=== PATIENT | female | born 1950 | race Caucasian/White ===

== ENCOUNTER → 2019-09-22 08:02 | Outpatient (CLI) | payer MEDICARE, OTHER, SELFPAY ==
[2019-09-22 08:57] LABS: Hematocrit 40.6 % (36-46); Hemoglobin 13.7 g/dL (12.0-16.0); Mean Corpuscular HGB Conc 33.8 % (30-36); Mean Corpuscular Hemoglobin 32.1 PG (26-34); Mean Corpuscular Volume 95.1 fL (80-100); Platelet Count 260 X10^3/uL (150-400); Red Blood Cell Count 4.27 X10^6/uL (4.0-5.2); Red Cell Distribution Width 12.9 % (11.6-14.8); White Blood Cell Count 5.7 X10^3/uL (4.5-11.0)
[2019-09-22 09:14] LABS: Alanine Aminotransferase 20 IU/L (<35); Albumin 4.3 g/dL (3.5-5.0); Albumin Globulin Ratio 1.7 (1.0-2.8); Alkaline Phosphatase 64 U/L (38-126); Aspartate Aminotransferase 32 IU/L (14-36); BUN Creatinine Ratio 22.5 (6-22); Bilirubin Total 0.6 mg/dL (0.2-1.3); Blood Urea Nitrogen 18 mg/dL (7-17); Calcium 9.5 mg/dL (8.4-10.2); Carbon Dioxide 28 mmol/L (22-32); Chloride 105 mmol/L (98-107); Cholesterol 179 mg/dL (140-199); Estimated Glomerular Filt Rate > 60.0 mL/min (>60); Globulin 2.6 g/dL (1.7-4.1); Glucose 98 mg/dL (80-110); HDL Cholesterol 73 mg/dL (40-60); HEMOLYSIS < 15 (0-50); LDL Cholesterol Calculated 95 mg/dL (<100); Potassium 4.3 mmol/L (3.4-5.1); Sodium 138 mmol/L (137-145); Total Protein 6.9 g/dL (6.3-8.2); Triglycerides 57 mg/dL (35-150)
== END ==
PROVIDERS: PCP Nurse Practitioner Family; Visit Provider Nurse Practitioner Family
DX: Z00.00 Encounter for general adult medical examination without abnormal findings (principal); Z13.6 Encounter for screening for cardiovascular disorders; R53.83 Other fatigue; E78.5 Hyperlipidemia, unspecified
CPT/HCPCS: 36415; 80053; 80061; 85027

== ENCOUNTER → 2020-06-23 14:24 | Outpatient (CLI) | payer MEDICARE, OTHER, SELFPAY ==
--- NOTE | 2020-06-23 14:35 | DI.MG.S_ITS ---
Patient Name: GUERITA DYER date: 1950 Sex: F Attending Physician: Mariela Indications: Date: 06/23/2020 14:28 At the request of: ANH STARR Procedure: MM screening mammo BI BILATERAL DIGITAL SCREENING MAMMOGRAM 3D/2D WITH CAD: 06/23/2020 CLINICAL: Routine screening. Family history of breast cancer. Comparison is made to exams dated: 02/07/2019 mammogram, 11/10/2017 mammogram, and 08/26/2016 mammogram - [facility]. The tissue of both breasts is heterogeneously dense. This may lower the sensitivity of mammography. Current study was also evaluated with a Computer Aided Detection (CAD) system. No significant masses, calcifications, or other findings are seen in either breast. There has been no significant interval change. IMPRESSION: NEGATIVE There is no mammographic evidence of malignancy. A 1 year screening mammogram is recommended. This exam was interpreted at Station ID: [id number]. NOTE: For mammograms, a report in lay terms will be sent to the patient. Approximately 15% of breast malignancies will not be visualized mammographically. In the management of a palpable breast mass, a negative mammogram must not discourage biopsy of a clinically suspicious lesion. Electronically Signed By: Jason abel/carmita:06/26/2020 09:53:33 letter sent: Normal Exam ACR BI-RADS Category 1: Negative 3341F
== END ==
PROVIDERS: PCP Nurse Practitioner Family; Referring Provider Nurse Practitioner Family; Visit Provider Nurse Practitioner Family
DX: Z12.31 Encounter for screening mammogram for malignant neoplasm of breast (principal); Z80.3 Family history of malignant neoplasm of breast
CPT/HCPCS: 77063; 77067

== ENCOUNTER → 2020-06-23 14:47 | Outpatient (CLI) | payer MEDICARE, OTHER, SELFPAY ==
[2020-06-26 15:42] LABS: COVID19 Sendout Not Detected (Not Detect)
== END ==
PROVIDERS: PCP Nurse Practitioner Family; Visit Provider Physician Assistant
DX: Z11.59 Encounter for screening for other viral diseases (principal)
CPT/HCPCS: 87635

== ENCOUNTER 2020-06-26 12:18 | Day surgery (SDC) | payer MEDICARE, OTHER, SELFPAY ==
[2020-06-26] VITALS (7 sets, daily range): BP systolic 99–134; BP diastolic 54–80; PULSE 65–79; RESP 12–18; TEMP 36–36.9; O2SAT 98–100; BMI 24.1
[2020-06-26] MEDS: SODIUM CHLORIDE 0.9% 1,000 ML 200 ML IV (13:01)
[2020-06-26 13:08] LABS: COVID19 -Nasal RAPID Negative (Negative)
--- NOTE | 2020-06-26 13:32 | P.HP_ITS ---
History of Present Illness History of Present Illness Date Patient Seen: 06/26/20 Time Patient Seen: 13:32 Chief complaint: [facility] [place] Narrative: This is a 70-year-old woman with history of colon polyps found on a screening colonoscopy 5 years ago. Since then she has had no new symptoms, no hematochezia, no melena, no unexplained abdominal pain, no unexplained weight loss. Her mother was diagnosed with colon cancer in her 60s. The patient denies any other family history of colon polyps or colon cancers. ROS: Positive for arthritis, gastritis, Thirteen system review is otherwise negative other than as mentioned below and in HPI. PE: GENERAL: Well groomed and cooperative. Appears stated age. Answers questions promptly and appropriately. Vital signs noted. HENT: Normocephalic, atraumatic. Hearing intact. EYES: Conjunctiva pink, sclera white, no periorbital swelling. CARDIOVASCULAR: Regular rate. No pedal edema. RESPIRATORY: Non-tachypneic, breathing comfortably on room air. GASTROINTESTINAL: Abdomen soft and non-distended GENITALURINARY: No flank tenderness. MUSCULOSKELETAL: Equal tone and mass bilaterally. SKIN: Warm, dry, soft, appropriate color for ethnicity. No other lesions, rashes, or wounds. NEURO: Alert and Oriented X 3. No gross sensory deficits, or cognitive issues. PSYCH: Appropriate affect and mood. Patient History Medical History Allergies (Inactive ~1959) Chicken pox (Resolved ~1954) Chronic SI joint pain (Chronic) Eczema (Resolved ~1952) Food allergy (Chronic ~1969) Hearing loss (Chronic ~2009) Measles (Resolved ~1955) Osteoarthritis (Chronic ~2011) Skin lesion (Acute) Stress incontinence (Chronic ~2009) Tinnitus (Inactive ~1989) Surgical History Anesthesia (Resolved) History of ectopic (Resolved ~1978) Status post appendectomy (~1984) Family & Social History Family History Grandfather Heart disease Mother Heart disease High cholesterol Cancer History of gastrointestinal disease Grandfather Cancer Grandmother Heart disease Sister Age: 72 Heart disease Osteoporosis PAD (peripheral artery disease) Fibromyalgia Hyperlipidemia Father Cancer Hypertension Hyperlipidemia TIA (transient ischemic attack) Grandmother Heart disease Daughter Crohn's disease in remission Social History: household members spouse Tobacco & Substance use: Smoking Status Never smoker alcohol intake current alcohol intake frequency 0-2 drinks per day Substance Use Type does not use Meds Home Medications and Allergies Home Medications Medication Instructions Recorded Confirmed Type aspirin 81 mg tablet,delayed 81 mg PO DAILY 07/05/19 06/26/20 History release Vitamin B12 200 mcg PO BEDTIME 09/12/19 06/26/20 History cholecalciferol (vitamin D3) 50 2,000 unit PO 3XW tab 09/12/19 06/26/20 History mcg (2,000 unit) tablet meloxicam 15 mg tablet 7.5 mg PO DAILY PRN mg 09/12/19 06/26/20 History s-adenosylmethionine 400 mg tablet 400 mg PO DAILY 09/12/19 06/26/20 History diclofenac sodium 1 % topical gel 2 gram TOP BEDTIME PRN #100 gram 03/02/20 06/26/20 Rx zolpidem 10 mg tablet 5 mg PO BEDTIME #30 tab 03/02/20 06/26/20 Rx atorvastatin 10 mg tablet 10 mg PO HS #90 tab 06/08/20 06/26/20 Rx Allergies Allergy/AdvReac Type Severity Reaction Status Date / Time ankush Allergy Severe Facial Verified 04/10/20 10:10 swelling onion AdvReac Intermediate upset Verified 04/10/20 10:10 stomach Exam Vital Signs (past 8 hours): - 06/26/20 12:42 Temperature 98.5 F Pulse Rate 79 Respiratory Rate 14 Blood Pressure 134/80 Pulse Oximetry 100 Oxygen Delivery Method Room Air Objective Labs Labs: Laboratory Results - last 24 hr 06/26/20 12:37 COVID-19 PCR Negative Assessment & Plan Assessment and plan (1) Personal history of colonic polyps: Status: Acute Assessment & Plan narrative: Risks and benefits of screening colonoscopy and possible polypectomy were discussed with the patient including risk of bleeding, perforation, need for additional procedures, risks of anesthesia. The patient desires to proceed with the colonoscopy procedure. COVID-19 COVID-19 status: Negative Result date/Date tested (Pos, Neg/Pending): 06/26/20 Time Spent With Patient Time with patient: 15-24 minutes Quality VTE Deep Vein Thrombosis/Pulmonary Embolism Present on Admission: No
--- NOTE | 2020-06-26 13:35 | PM.OP.ENDO ---
Operative Date/Time/Diagnoses Date of procedure: 06/26/20 Time of procedure: 13:35 Pre-op diagnosis: Personal history of colon polyps Post-op diagnosis: other (Poor prep. No polyps seen) Procedure & Clinicians Study performed: Colonoscopy Procedure sedation performed by the endoscopist Indications: Personal history of colon polyps Surgeon: Evelyne Valdez Procedure Notes SCOAP/Timeout: Performed Procedure in detail: The patient was brought to the room and placed in left lateral decubitus position with all bony prominences padded. A time-out was performed and then the patient was given procedural sedation starting with 2 mg of Versed and 100 mcg of fentanyl. A total of 6 mg of Versed and 200 micro g of fentanyl were given for the entire procedure. Vitals were monitored throughout the procedure and remained stable. Once adequately sedated, the procedure was begun. A rectal exam was performed revealing no abnormalities. The colonoscope was then introduced to the rectum and advanced to the cecum in the usual fashion. The colon was very tortuous, and the patient did not tolerate the procedure very well. We continue to give her additional doses of Versed and fentanyl, but we are limited by her low blood pressure which dropped each time we gave her medication. The cecum was identified by the appendiceal orifice, the mucosal tri-fold, and the ileocecal valve. The scope was then retracted while rotating side to side and examining each mucosal fold. The view was limited by poor prep, with stool and vegetable matter in the cecum, transverse, descending colon, and rectum. Any polyps smaller than 5 mm would have been missed on this procedure due to poor visibility owing to inadequate prep. At the conclusion of the procedure retroflexion was performed and small grade 1-2 internal hemorrhoids without stigmata of bleeding were seen. The scope was then withdrawn from the rectum the procedure was concluded. The patient tolerated the procedure well and was transferred to the PACU in stable condition. Scope withdrawal time: 8 Sedation minutes: 27 Findings: other findings (Inadequate prep) Specimen(s): none sent Complications: none Impression: No polyps seen with the limitation that polyps under 5 mm were likely missed given that there was adherent stool and vegetable matter in the colon Post-procedure Recommendations: Colonscopy in 5 years Follow up: as needed Disposition: PACU
[2020-06-26] MEDS: MIDAZOLAM 5 MG/5 ML VIAL IV (13:39)
[2020-06-26] MEDS: fentaNYL 250 MCG/5 ML INJ IV (13:39)
--- NOTE | 2020-06-26 14:42 | SUR.PHASEI ---
1430 late entry Pt very drowsy, arouses easily to voice. Dr. Valdez spoke with her about her procedure and then recommendations for the next one. VSS. Mostly slept until transferred to [facility].
--- NOTE | 2020-06-26 14:45 | SUR.PHASEII ---
Pt wanting to rest for a bit. Resting comfortably with no c/o.
--- NOTE | 2020-06-26 15:08 | SUR.PHASEII ---
Pt dcd via wc in stable condition with no c/o. All dc instructions givven and pt verbalizes understanding. Pt ambulating well, gait steady.
== END 2020-06-26 15:15 | disposition home or self-care (01) ==
PROVIDERS: PCP Nurse Practitioner Family; Referring Provider Nurse Practitioner Family; Visit Provider Surgery
PROC: 0DJD8ZZ Inspection of Lower Intestinal Tract, Via Natural or Artificial Opening Endoscopic (ICD-10-PCS; CPT 45378; principal; 2020-06-26 13:45)
DX: Z12.11 Encounter for screening for malignant neoplasm of colon (principal); Z86.010 Personal history of colon polyps; Z80.0 Family history of malignant neoplasm of digestive organs; Z11.59 Encounter for screening for other viral diseases; K64.0 First degree hemorrhoids
CPT/HCPCS: G0105; 87635; 99152; 99153; J2250; J3010

== ENCOUNTER → 2020-12-13 07:06 | Outpatient (CLI) | payer MEDICARE, OTHER, SELFPAY ==
[2020-12-13 08:32] LABS: BUN Creatinine Ratio 17.3 (6-22); Blood Urea Nitrogen 13 mg/dL (7-17); Calcium 9.4 mg/dL (8.4-10.2); Carbon Dioxide 32 mmol/L (22-32); Chloride 103 mmol/L (98-107); Cholesterol 184 mg/dL (140-199); Estimated Glomerular Filt Rate > 60.0 mL/min (>60); Glucose 98 mg/dL (80-110); HDL Cholesterol 76 mg/dL (40-60); HEMOLYSIS < 15 (0-50); LDL Cholesterol Calculated 97 mg/dL (<100); Potassium 4.1 mmol/L (3.4-5.1); Sodium 137 mmol/L (137-145); Triglycerides 55 mg/dL (35-150)
[2020-12-13 08:39] LABS: Hematocrit 39.2 % (36-46); Hemoglobin 12.7 g/dL (12.0-16.0); Mean Corpuscular HGB Conc 32.3 % (30-36); Mean Corpuscular Hemoglobin 28.1 PG (26-34); Platelet Count 267 X10^3/uL (150-400); Red Blood Cell Count 4.51 X10^6/uL (4.0-5.2); Red Cell Distribution Width 19.8 % (11.6-14.8); White Blood Cell Count 6.4 X10^3/uL (4.5-11.0)
[2020-12-13 08:48] LABS: HEMOLYSIS < 15 (0-50); Iron 101 ug/dL (37-170)
[2020-12-13 08:59] LABS: Ferritin 13 ng/mL (11-264)
[2020-12-13 09:00] LABS: Percent Iron Saturation 28 % (15-50); Total Iron Binding Capacity 366 ug/dL (265-497); Transferrin 292 mg/dL (206-381)
== END ==
PROVIDERS: PCP Nurse Practitioner Family; Referring Provider Nurse Practitioner Family; Visit Provider Nurse Practitioner Family
DX: E61.1 Iron deficiency (principal); R79.9 Abnormal finding of blood chemistry, unspecified; E78.5 Hyperlipidemia, unspecified
CPT/HCPCS: 36415; 80048; 80061; 82728; 83540; 83550; 85027

== ENCOUNTER → 2021-08-27 15:38 | Outpatient (CLI) | payer MEDICARE, OTHER, SELFPAY ==
--- NOTE | 2021-08-27 15:39 | DI.MG.S_ITS ---
BILATERAL DIGITAL SCREENING MAMMOGRAM 3D/2D WITH CAD: 08/27/2021 CLINICAL: Routine screening. Family history of breast cancer. Comparison is made to exams dated: 06/23/2020 mammogram - [facility], 02/07/2019 mammogram, and 11/10/2017 mammogram - [facility]. The tissue of both breasts is heterogeneously dense. This may lower the sensitivity of mammography. Current study was also evaluated with a Computer Aided Detection (CAD) system. There are benign vascular calcifications in both breasts. No significant masses, calcifications, or other findings are seen in either breast. There has been no significant interval change. IMPRESSION: BENIGN There is no mammographic evidence of malignancy. A 1 year screening mammogram is recommended. This exam was interpreted at Station ID: [id number]. NOTE: For mammograms, a report in lay terms will be sent to the patient. Approximately 15% of breast malignancies will not be visualized mammographically. In the management of a palpable breast mass, a negative mammogram must not discourage biopsy of a clinically suspicious lesion. Electronically Signed By: Bharat faulkner/carmita:08/27/2021 16:00:36 letter sent: Normal Exam ACR BI-RADS Category 2: Benign Finding(s) 3342F
== END ==
PROVIDERS: PCP Nurse Practitioner Family; Referring Provider Nurse Practitioner Family; Visit Provider Nurse Practitioner Family
DX: Z12.31 Encounter for screening mammogram for malignant neoplasm of breast (principal); Z80.3 Family history of malignant neoplasm of breast
CPT/HCPCS: 77063; 77067

== ENCOUNTER → 2021-12-13 07:05 | Outpatient (CLI) | payer MEDICARE, OTHER, SELFPAY ==
[2021-12-13 09:05] LABS: Hematocrit 40.6 % (36-46); Hemoglobin 13.3 g/dL (12.0-16.0); Mean Corpuscular HGB Conc 32.7 % (30-36); Mean Corpuscular Hemoglobin 30.7 PG (26-34); Platelet Count 268 X10^3/uL (150-400); Red Blood Cell Count 4.32 X10^6/uL (4.0-5.2); Red Cell Distribution Width 13.9 % (11.6-14.8); White Blood Cell Count 8.4 X10^3/uL (4.5-11.0)
[2021-12-13 09:36] LABS: HEMOLYSIS < 15 (0-50); Iron 117 ug/dL (37-170)
[2021-12-13 09:50] LABS: Percent Iron Saturation 35 % (15-50); Total Iron Binding Capacity 335 ug/dL (265-497); Transferrin 274 mg/dL (206-381)
[2021-12-13 10:24] LABS: Vitamin D 25 Hydroxy (D3) 33.6 ng/mL (30.0-100.0)
[2021-12-13 11:06] LABS: Alanine Aminotransferase 25 IU/L (<35); Albumin 4.4 g/dL (3.5-5.0); Albumin Globulin Ratio 1.5 (1.0-2.8); Alkaline Phosphatase 59 U/L (38-126); Aspartate Aminotransferase 43 IU/L (14-36); BUN Creatinine Ratio 23.5 (6-22); Bilirubin Total 0.5 mg/dL (0.2-1.3); Blood Urea Nitrogen 19 mg/dL (7-17); Calcium 9.1 mg/dL (8.4-10.2); Carbon Dioxide 29 mmol/L (22-32); Chloride 100 mmol/L (98-107); Cholesterol 178 mg/dL (140-199); Estimated Glomerular Filt Rate > 60.0 mL/min (>60); Globulin 2.9 g/dL (1.7-4.1); Glucose 89 mg/dL (80-110); HDL Cholesterol 77 mg/dL (40-60); HEMOLYSIS < 15 (0-50); LDL Cholesterol Calculated 87 mg/dL (<100); Potassium 4.1 mmol/L (3.4-5.1); Sodium 134 mmol/L (137-145); Total Protein 7.3 g/dL (6.3-8.2); Triglycerides 68 mg/dL (35-150)
[2021-12-13 11:38] LABS: Ferritin 18 ng/mL (11-264)
== END ==
PROVIDERS: PCP Nurse Practitioner Family; Referring Provider Nurse Practitioner Family; Visit Provider Nurse Practitioner Family
DX: E61.1 Iron deficiency (principal); E78.5 Hyperlipidemia, unspecified; E55.9 Vitamin D deficiency, unspecified; F41.9 Anxiety disorder, unspecified
CPT/HCPCS: 36415; 80053; 80061; 82306; 82728; 83540; 83550; 85027

== ENCOUNTER → 2022-09-04 08:07 | Outpatient (CLI) | payer MEDICARE, OTHER, SELFPAY ==
--- NOTE | 2022-09-04 | DI.MG.S_ITS ---
BILATERAL DIGITAL SCREENING MAMMOGRAM 3D/2D WITH CAD: 09/04/2022 CLINICAL: Routine screening. Family history of breast cancer. Comparison is made to exams dated: 08/27/2021 mammogram, 06/23/2020 mammogram - , and 02/07/2019 mammogram - [facility]. Both breasts are heterogeneously dense, which may obscure small masses (category c / 51-75% glandular tissue). Current study was also evaluated with a Computer Aided Detection (CAD) system. There are benign vascular calcifications in both breasts. No significant masses, calcifications, or other findings are seen in either breast. There has been no significant interval change. IMPRESSION: BENIGN There is no mammographic evidence of malignancy. A 1 year screening mammogram is recommended. Based on the Tyrer Cuzick model (a risk assessment model) the patient's lifetime risk is 14.7% and her 10 year risk is 10.2%. According to the ACR, ACS, and NCCN guidelines, an annual breast MRI exam along with mammogram is recommended if the patient's lifetime risk is 20% or greater. This exam was interpreted at Station ID: [id number]. NOTE: For mammograms, a report in lay terms will be sent to the patient. Approximately 15% of breast malignancies will not be visualized mammographically. In the management of a palpable breast mass, a negative mammogram must not discourage biopsy of a clinically suspicious lesion. Electronically Signed By: Norman herrera/carmita:09/04/2022 09:23:17 letter sent: Normal Exam ACR BI-RADS Category 2: Benign Finding(s) 3342F
== END ==
PROVIDERS: PCP Nurse Practitioner; Referring Provider Nurse Practitioner; Visit Provider Nurse Practitioner
DX: Z12.31 Encounter for screening mammogram for malignant neoplasm of breast (principal); Z80.3 Family history of malignant neoplasm of breast
CPT/HCPCS: 77063; 77067

== ENCOUNTER → 2022-09-30 10:44 | Outpatient (CLI) | payer MEDICARE, OTHER, SELFPAY ==
[2022-09-30 11:02] LABS: Appearance Urine UA CLEAR; Bilirubin Urine UA NEGATIVE (NEGATIVE); Color Urine UA YELLOW; Glucose Urine UA NEGATIVE (Negative); Ketones Urine UA NEGATIVE (NEGATIVE); Leukocyte Esterase Urine UA TRACE (NEGATIVE); Nitrite Urine UA NEGATIVE (Negative); Occult Blood Urine UA NEGATIVE (Negative); Protein Urine UA NEGATIVE (Negative); Specific Gravity Urine UA <=1.005 (1.000-1.035); Urobilinogen Urine UA 0.2 E.U./dL (0.2)
[2022-09-30 11:03] LABS: pH Urine UA 6.5 (4.5-8.0)
[2022-09-30 11:08] LABS: Bacteria Urine None Seen; Culture Indicated Urine Specimen Cultured; RBC Urine None Seen (0-5/HPF); WBC Urine None Seen (0-5/HPF)
== END ==
PROVIDERS: PCP Nurse Practitioner; Referring Provider Nurse Practitioner; Visit Provider Nurse Practitioner
DX: R32 Unspecified urinary incontinence (principal)
CPT/HCPCS: 81001; 87086

== ENCOUNTER → 2022-11-26 11:35 | Outpatient (CLI) | payer MEDICARE, OTHER, SELFPAY | PROVIDERS: Family Provider Nurse Practitioner; PCP Nurse Practitioner; Referring Provider Nurse Practitioner; Visit Provider Nurse Practitioner | DX: M85.851 Other specified disorders of bone density and structure, right thigh (principal); Z13.820 Encounter for screening for osteoporosis; Z78.0 Asymptomatic menopausal state | CPT/HCPCS: 77080 ==

== ENCOUNTER 2022-12-15 09:45 | Outpatient (RCR) | payer MEDICARE, OTHER, SELFPAY ==
--- NOTE | 2022-12-01 14:15 | PT.OIE ---
Current Diagnoses Other chronic pain (12/01/22) Pain in right knee (12/01/22) Past Medical History (Last Updated 09/30/22 @ 09:54 by ARNAUD Mena) Allergies (~1959) Chicken pox (~1954) Chronic SI joint pain Eczema (~1952) Food allergy (~1969) Hearing loss (~2009) Iron deficiency Measles (~1955) Medicare annual wellness visit, subsequent (12/10/21) Osteoarthritis (~2011) Skin lesion Stress incontinence (~2009) Tinnitus (~1989) Vitamin D deficiency Past Surgical History (Last Reviewed 09/30/22 @ 09:52 by ARNAUD Mena) Anesthesia History of ectopic (~1978) Status post appendectomy (~1984) Visit Care Team Role Provider Type ARNAUD Mena Attending Provider Advanced Sanitation Officer Family Provider Primary Care Provider Referring Provider Specialty: Family Practice Address: [address] [place] [address] Email: [email or web address] Physical Therapy Initial Evaluation PT-OP-A Visit Information Start: 11/25/22 10:11 Freq: Status: Active Protocol: Document 12/01/22 13:01 AMB (Rec: 12/01/22 13:13 AMB [id number]) Out-Patient Physical Therapy Visit Information Visit Information Visit Type Initial Evaluation Visit Start Time 13:00 Visit Stop Time 13:45 Total Visit Minutes 45 Visit Number 1 PT-OP-B Current Condition Start: 11/25/22 10:11 Freq: Status: Active Protocol: Document 12/01/22 13:01 AMB (Rec: 12/01/22 13:13 AMB [id number]) Current Condition History of Current Condition Onset Date Summer 2020 Current Complaints R knee History of Current Condition Over stretched summer and hurt medial knee. Twisting the knee continues to be problematic. Walks with the dog at least 1.5 miles [place] walking [place] seems to be [place]. Does feel that part of the knee 1- 2x/day. 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 He is still mobile, she doesn' t have to physically transfer him. Treatment Goals Patient/Caregiver Goals Strengthen knee to prevent further worsening of sx. Personal Factors Other Personal Factors That May Effect Hx SI pain Therapy/Recovery PT-OP-C Subjective Start: 11/25/22 10:11 Freq: Status: Active Protocol: Document 12/01/22 13:00 AMB (Rec: 12/04/22 13:59 AMB [id number]) Patient Questionnaires Lower Extremity Functional Scale LEFS Score 69 PT-OP-F Manual Assessment Start: 11/25/22 10:11 Freq: Status: Active Protocol: Document 12/01/22 13:00 AMB (Rec: 12/04/22 13:59 AMB [id number]) Manual Assessments Other Manual Assessments Other Manual Assessments ROM WNL. mild swelling at popliteal fossa PT-OP-L Special Tests Start: 11/25/22 10:11 Freq: Status: Active Protocol: Document 12/01/22 13:00 AMB (Rec: 12/04/22 13:59 AMB [id number]) Special Tests Knee Special Tests Varus- 25 Degrees Test Results - Valgus- 25 Degrees Test Results - Glo Test Test Results - PT-OP-M Strength Start: 11/25/22 10:11 Freq: Status: Active Protocol: Document 12/01/22 13:00 AMB (Rec: 12/04/22 13:59 AMB [id number]) Hip Strength Hip Manual Muscle Testing Right Flexion (L2) 4 Good Extension (S1) 4 Good Abduction 4 Good Left Flexion (L2) 4+ Good+ Extension (S1) 4+ Good+ Abduction 4+ Good+ Knee Strength Knee Manual Muscle Testing Right Flexion (S2) 4+ Good+ Extension (L3) 4+ Good+ Left Flexion (S2) 4+ Good+ Extension (L3) 4+ Good+ PT-OP-Q Treatments Start: 11/25/22 10:11 Freq: Status: Active Protocol: Document 12/01/22 13:00 AMB (Rec: 12/04/22 13:59 AMB [id number]) Therapeutic Exercises Standing Exercises monster walk Reps/Minutes 10 Comments #2 t band squat Reps/Minutes 10 lunge Reps/Minutes 10 PT-OP-T Assessment and Plan Start: 11/25/22 10:11 Freq: Status: Active Protocol: Document 12/01/22 13:59 AMB (Rec: 12/04/22 14:15 AMB [id number]) Physical Therapy Assessment Rehab Potential Rehabilitation Potential Good Evaluation Complexity Number of Personal Factors/Comorbidities 1-2 Number of Body Systems Impaired 3 Clinical Presentation at Evaluation Stable Impairments Impairments Pain,ROM,Strength Goals Two Impairment Gait Short Term Goal (STG) Pt will be able to make sharp turns while walking without an increase in knee pain. STG Duration 6 weeks One Impairment HEP Short Term Goal (STG) Pt will be independent and consistent with a HEP to strengthen her knee/hip complex. STG Duration 6 weeks Assessment Summary Assessment Esha attends physical therapy secondary to medial knee pain that started while stretching her knee. The pain has subsided a good amount, but it still feels a little unstable especially with quick changes in direction. Pt did have mild weakness in her right hip and mild swelling and tenderness at distal attachment of MCL. She will benefit from a skilled therapy progression of strengthening her knee and hip. Physical Therapy Plan Frequency and Duration Frequency of Treatment 2x/Week Duration of treatment (weeks) 6 Plan of Care Start Date 12/01/22 Plan of Care End Date 01/12/23 Therapeutic Interventions Therapeutic Interventions Balance Training,Gait Training ,Home Exercise Program,Manual Therapy,Neuromuscular Re- education,Self-Care/Home Management,Therapeutic Activities,Therapeutic Exercises Modalities Cold Pack/Ice Massage,Electric Stimulation,Hot Packs Next Visit Focus/Plan Next Note Type Treatment Note Next Visit Plan Reassess fwd lunge, squat, and monster walk.
--- NOTE | 2022-12-01 14:16 | PT.OPPOC ---
Physical, Occupational & Speech Therapy At [facility] Current Diagnoses Other chronic pain (12/01/22) Pain in right knee (12/01/22) Visit Care Team Role Provider Type ARNAUD Mena Attending Provider Advanced Scrap Yard Worker Family Provider Primary Care Provider Referring Provider Specialty: Family Practice Address: [address] [place] [address], [facility] Email: [email or web address] Plan Of Care PT-OP-T Assessment and Plan Start: 11/25/22 10:11 Freq: Status: Active Protocol: Document 12/01/22 13:59 AMB (Rec: 12/04/22 14:15 AMB [id number]) Physical Therapy Assessment Rehab Potential Rehabilitation Potential Good Evaluation Complexity Number of Personal Factors/Comorbidities 1-2 Number of Body Systems Impaired 3 Clinical Presentation at Evaluation Stable Impairments Impairments Pain,ROM,Strength Goals Two Impairment Gait Short Term Goal (STG) Pt will be able to make sharp turns while walking without an increase in knee pain. STG Duration 6 weeks One Impairment HEP Short Term Goal (STG) Pt will be independent and consistent with a HEP to strengthen her knee/hip complex. STG Duration 6 weeks Assessment Summary Assessment Esha attends physical therapy secondary to medial knee pain that started while stretching her knee. The pain has subsided a good amount, but it still feels a little unstable especially with quick changes in direction. Pt did have mild weakness in her right hip and mild swelling and tenderness at distal attachment of MCL. She will benefit from a skilled therapy progression of strengthening her knee and hip. Physical Therapy Plan Frequency and Duration Frequency of Treatment 2x/Week Duration of treatment (weeks) 6 Plan of Care Start Date 12/01/22 Plan of Care End Date 01/12/23 Therapeutic Interventions Therapeutic Interventions Balance Training,Gait Training ,Home Exercise Program,Manual Therapy,Neuromuscular Re- education,Self-Care/Home Management,Therapeutic Activities,Therapeutic Exercises Modalities Cold Pack/Ice Massage,Electric Stimulation,Hot Packs Next Visit Focus/Plan Next Note Type Treatment Note Next Visit Plan Reassess fwd lunge, squat, and monster walk. Plan of Care Dates Plan of Care Start Date 12/01/22 Plan of Care End Date 01/12/23 Electronically Signed by: Josey Serrano, PT 12/04/22 1416 If you are in agreement with this Plan of Care, please return a signed and dated copy. I have reviewed this Plan of Care and certify that the skilled therapy services above are required to meet the patient?s needs. Physician Signature Date Printed Name and Credentials Clinical Instructor Signature Printed Name and Credentials
--- NOTE | 2022-12-09 11:16 | PT.OTN ---
Current Diagnoses Other chronic pain (12/09/22) Pain in right knee (12/09/22) Physical Therapy Treatment Note PT-OP-A Visit Information Start: 11/25/22 10:11 Freq: Status: Active Protocol: Document 12/09/22 09:48 AMB (Rec: 12/09/22 10:25 AMB [id number]) Out-Patient Physical Therapy Visit Information Visit Information Visit Type Treatment Note Visit Start Time 09:45 Visit Stop Time 10:30 Total Visit Minutes 45 Visit Number 2 PT-OP-B Current Condition Start: 11/25/22 10:11 Freq: Status: Active Protocol: Document 12/01/22 13:01 AMB (Rec: 12/01/22 13:13 AMB [id number]) Current Condition History of Current Condition Onset Date Summer 2020 Current Complaints R knee History of Current Condition Over stretched summer and hurt medial knee. Twisting the knee continues to be problematic. Walks with the dog at least 1.5 miles when walking [place] the [place] seems to be ok. Does feel that part of the knee 1- 2x/day. 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 He is still mobile, she doesn' t have to physically transfer him. Treatment Goals Patient/Caregiver Goals Strengthen knee to prevent further worsening of sx. Personal Factors Other Personal Factors That May Effect Hx SI pain Therapy/Recovery PT-OP-C Subjective Start: 11/25/22 10:11 Freq: Status: Active Protocol: Document 12/09/22 09:48 AMB (Rec: 12/09/22 10:25 AMB [id number]) OP-PT Subjective Patient Comments Patient Comments Pt reports she is doing ok, has had a difficult time to find time doing her exercises. PT-OP-F Manual Assessment Start: 11/25/22 10:11 Freq: Status: Active Protocol: Document 12/01/22 13:00 AMB (Rec: 12/04/22 13:59 AMB [id number]) Manual Assessments Other Manual Assessments Other Manual Assessments ROM WNL. mild swelling at popliteal fossa PT-OP-L Special Tests Start: 11/25/22 10:11 Freq: Status: Active Protocol: Document 12/01/22 13:00 AMB (Rec: 12/04/22 13:59 AMB [id number]) Special Tests Knee Special Tests Varus- 25 Degrees Test Results - Valgus- 25 Degrees Test Results - Glo Test Test Results - PT-OP-M Strength Start: 11/25/22 10:11 Freq: Status: Active Protocol: Document 12/01/22 13:00 AMB (Rec: 12/04/22 13:59 AMB [id number]) Hip Strength Hip Manual Muscle Testing Right Flexion (L2) 4 Good Extension (S1) 4 Good Abduction 4 Good Left Flexion (L2) 4+ Good+ Extension (S1) 4+ Good+ Abduction 4+ Good+ Knee Strength Knee Manual Muscle Testing Right Flexion (S2) 4+ Good+ Extension (L3) 4+ Good+ Left Flexion (S2) 4+ Good+ Extension (L3) 4+ Good+ PT-OP-Q Treatments Start: 11/25/22 10:11 Freq: Status: Active Protocol: Document 12/09/22 10:40 AMB (Rec: 12/09/22 11:07 AMB [id number]) Therapeutic Exercises Standing Exercises stair step ups Standing Exercise Name fwd and lateral Reps/Minutes 2x10 ea Comments light UE support on railing single leg squat drive Resistance #4 t band Reps/Minutes 2x10 single leg mini squat Reps/Minutes 10 Comments cued glutes, knee alignment monster walk Reps/Minutes 10 Comments #2 t band squat Reps/Minutes 10 lunge Standing Exercise Name forward Reps/Minutes 10 Comments cues for glut activation, knee /hip/foot alignment PT-OP-T Assessment and Plan Start: 11/25/22 10:11 Freq: Status: Active Protocol: Document 12/09/22 09:48 AMB (Rec: 12/09/22 10:25 AMB [id number]) Physical Therapy Assessment Goals Two Impairment Gait Short Term Goal (STG) Pt will be able to make sharp turns while walking without an increase in knee pain. STG Duration 6 weeks One Impairment HEP Short Term Goal (STG) Pt will be independent and consistent with a HEP to strengthen her knee/hip complex. STG Duration 6 weeks Assessment Summary Assessment Esha has been doing her lunges but, now is more mindful of her form. Good gluteal activation during standing exercises. Overall doing well as long as she is mindful to avoid twisting movements. Physical Therapy Plan Frequency and Duration Frequency of Treatment 2x/Week Duration of treatment (weeks) 6 Plan of Care Start Date 12/01/22 Plan of Care End Date 01/12/23 Therapeutic Interventions Therapeutic Interventions Balance Training,Gait Training ,Home Exercise Program,Manual Therapy,Neuromuscular Re- education,Self-Care/Home Management,Therapeutic Activities,Therapeutic Exercises Modalities Cold Pack/Ice Massage,Electric Stimulation,Hot Packs Next Visit Focus/Plan Next Note Type Treatment Note Next Visit Plan Reassess fwd lunge, squat, progress gluteal strengthening with mindfulness of avoiding knee valgus and knee over toe positioning
--- NOTE | 2022-12-15 10:30 | PT.OTN ---
Current Diagnoses Other chronic pain (12/15/22) Pain in right knee (12/15/22) Physical Therapy Treatment Note PT-OP-A Visit Information Start: 11/25/22 10:11 Freq: Status: Active Protocol: Document 12/15/22 09:51 NBM (Rec: 12/15/22 10:35 NBM [id number]) Out-Patient Physical Therapy Visit Information Visit Information Visit Type Treatment Note Visit Start Time 09:50 Visit Stop Time 10:28 Total Visit Minutes 38 Visit Number 3 Number of INSTRUMENT TECHNICIAN Visits 1 PT-OP-B Current Condition Start: 11/25/22 10:11 Freq: Status: Active Protocol: Document 12/01/22 13:01 AMB (Rec: 12/01/22 13:13 AMB [id number]) Current Condition History of Current Condition Onset Date Summer 2020 Current Complaints R knee History of Current Condition Over stretched summer and hurt medial knee. Twisting the knee continues to be problematic. Walks with the dog at least 1.5 miles [place]. Does feel that part of the knee 1- 2x/day. 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 He is still mobile, she doesn' t have to physically transfer him. Treatment Goals Patient/Caregiver Goals Strengthen knee to prevent further worsening of sx. Personal Factors Other Personal Factors That May Effect Hx SI pain Therapy/Recovery PT-OP-C Subjective Start: 11/25/22 10:11 Freq: Status: Active Protocol: Document 12/15/22 09:51 NBM (Rec: 12/15/22 10:35 NBM [id number]) OP-PT Subjective Patient Comments Patient Comments Pt reports she does not have much time for HEP because her spouse started chemo last week . PT-OP-F Manual Assessment Start: 11/25/22 10:11 Freq: Status: Active Protocol: Document 12/01/22 13:00 AMB (Rec: 12/04/22 13:59 AMB [id number]) Manual Assessments Other Manual Assessments Other Manual Assessments ROM WNL. mild swelling at popliteal fossa PT-OP-L Special Tests Start: 11/25/22 10:11 Freq: Status: Active Protocol: Document 12/01/22 13:00 AMB (Rec: 12/04/22 13:59 AMB [id number]) Special Tests Knee Special Tests Varus- 25 Degrees Test Results - Valgus- 25 Degrees Test Results - Glo Test Test Results - PT-OP-M Strength Start: 11/25/22 10:11 Freq: Status: Active Protocol: Document 12/01/22 13:00 AMB (Rec: 12/04/22 13:59 AMB [id number]) Hip Strength Hip Manual Muscle Testing Right Flexion (L2) 4 Good Extension (S1) 4 Good Abduction 4 Good Left Flexion (L2) 4+ Good+ Extension (S1) 4+ Good+ Abduction 4+ Good+ Knee Strength Knee Manual Muscle Testing Right Flexion (S2) 4+ Good+ Extension (L3) 4+ Good+ Left Flexion (S2) 4+ Good+ Extension (L3) 4+ Good+ PT-OP-Q Treatments Start: 11/25/22 10:11 Freq: Status: Active Protocol: Document 12/15/22 09:51 NBM (Rec: 12/15/22 10:35 [facility] [id number]) Therapeutic Exercises Standing Exercises stair step ups Standing Exercise Name fwd and lateral Reps/Minutes 2x10 ea Comments light UE support on railing single leg squat drive Resistance #4 t band Reps/Minutes 2x10 single leg mini squat Reps/Minutes 10 Comments cued glutes, knee alignment monster walk Reps/Minutes 10 Comments #2 t band squat Reps/Minutes 10 lunge Standing Exercise Name forward Reps/Minutes 10 Comments cues for glut activation, knee /hip/foot alignment PT-OP-T Assessment and Plan Start: 11/25/22 10:11 Freq: Status: Active Protocol: Document 12/15/22 09:51 NBM (Rec: 12/15/22 10:35 [facility] [id number]) Physical Therapy Assessment Impairments Impairments Pain,ROM,Strength Goals Two Impairment Gait Short Term Goal (STG) Pt will be able to make sharp turns while walking without an increase in knee pain. STG Duration 6 weeks One Impairment HEP Short Term Goal (STG) Pt will be independent and consistent with a HEP to strengthen her knee/hip complex. STG Duration 6 weeks Assessment Summary Assessment Pt improves form with visual feedback. Cues for slow eccentric. Treatment focus on HEP review with occ cues for form, hip hinge, knee alignment, glute activation with step ups. Physical Therapy Plan Frequency and Duration Frequency of Treatment 2x/Week Duration of treatment (weeks) 6 Plan of Care Start Date 12/01/22 Plan of Care End Date 01/12/23 Therapeutic Interventions Therapeutic Interventions Balance Training,Gait Training ,Home Exercise Program,Manual Therapy,Neuromuscular Re- education,Self-Care/Home Management,Therapeutic Activities,Therapeutic Exercises Modalities Cold Pack/Ice Massage,Electric Stimulation,Hot Packs Next Visit Focus/Plan Next Note Type Treatment Note Next Visit Plan Reassess fwd lunge, squat, progress gluteal strengthening with mindfulness of avoiding knee valgus and knee over toe positioning
--- NOTE | 2022-12-19 14:05 | PT-OP ANOTE ---
NO show- left voicemail explaining this was the last schedule apt, and to please call us back to discuss need for further tx vs dc
--- NOTE | 2023-05-20 15:32 | PT.OPDS ---
Current Diagnoses Other chronic pain (12/15/22) Pain in right knee (12/15/22) Visit Care Team Role Provider Type ARNAUD Mena Attending Provider Advanced Assembly Line Driver Family Provider Primary Care Provider Referring Provider Specialty: Family Practice Address: [address] [place] [address], [facility] Email: [email or web address] Visit Number Visit Number 3 Discharge Summary PT-OP-B Current Condition Start: 11/25/22 10:11 Freq: Status: Active Protocol: Document 12/01/22 13:01 AMB (Rec: 12/01/22 13:13 AMB [id number]) Current Condition History of Current Condition Onset Date Summer 2020 Current Complaints R knee History of Current Condition Over stretched summer and hurt medial knee. Twisting the knee continues to be problematic. Walks with the dog at least 1.5 miles when [place] seems [place] be [place]. Does feel that part of the knee 1- 2x/day. 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 He is still mobile, she doesn' t have to physically transfer him. Treatment Goals Patient/Caregiver Goals Strengthen knee to prevent further worsening of sx. Personal Factors Other Personal Factors That May Effect Hx SI pain Therapy/Recovery PT-OP-C Subjective Start: 11/25/22 10:11 Freq: Status: Active Protocol: Document 12/15/22 09:51 NBM (Rec: 12/15/22 10:35 NBM [id number]) OP-PT Subjective Patient Comments Patient Comments Pt reports she does not have much time for HEP because her spouse started chemo last week . PT-OP-F Manual Assessment Start: 11/25/22 10:11 Freq: Status: Active Protocol: Document 12/01/22 13:00 AMB (Rec: 12/04/22 13:59 AMB [id number]) Manual Assessments Other Manual Assessments Other Manual Assessments ROM WNL. mild swelling at popliteal fossa PT-OP-L Special Tests Start: 11/25/22 10:11 Freq: Status: Active Protocol: Document 12/01/22 13:00 AMB (Rec: 12/04/22 13:59 AMB [id number]) Special Tests Knee Special Tests Varus- 25 Degrees Test Results - Valgus- 25 Degrees Test Results - Glo Test Test Results - PT-OP-M Strength Start: 11/25/22 10:11 Freq: Status: Active Protocol: Document 12/01/22 13:00 AMB (Rec: 12/04/22 13:59 AMB [id number]) Hip Strength Hip Manual Muscle Testing Right Flexion (L2) 4 Good Extension (S1) 4 Good Abduction 4 Good Left Flexion (L2) 4+ Good+ Extension (S1) 4+ Good+ Abduction 4+ Good+ Knee Strength Knee Manual Muscle Testing Right Flexion (S2) 4+ Good+ Extension (L3) 4+ Good+ Left Flexion (S2) 4+ Good+ Extension (L3) 4+ Good+ PT-OP-T Assessment and Plan Start: 11/25/22 10:11 Freq: Status: Active Protocol: Document 05/20/23 15:30 AMB (Rec: 05/20/23 15:32 AMB [id number]) Physical Therapy Assessment Goals Two Impairment Gait Short Term Goal (STG) Pt will be able to make sharp turns while walking without an increase in knee pain. STG Duration 6 weeks One Impairment HEP Short Term Goal (STG) Pt will be independent and consistent with a HEP to strengthen her knee/hip complex. STG Duration 6 weeks Assessment Summary Assessment Pt no showed her last scheduled appointment and has not rescheduled, she was instructed in a HEP. Physical Therapy Plan Discharge Physical Therapy Discharge Reasons No Longer Attending PT
== END 2023-05-21 14:07 | disposition home or self-care (01) ==
LOC: PHYS 09:45
PROVIDERS: Family Provider Nurse Practitioner; PCP Nurse Practitioner; Referring Provider Nurse Practitioner; Visit Provider Nurse Practitioner
DX: M25.561 Pain in right knee (principal); G89.29 Other chronic pain
CPT/HCPCS: 97110; 97161

== ENCOUNTER → 2022-12-22 07:32 | Outpatient (CLI) | payer MEDICARE, OTHER, SELFPAY ==
[2022-12-22 08:08] LABS: Hematocrit 37.9 % (36-46); Hemoglobin 12.8 g/dL (12.0-16.0); Mean Corpuscular HGB Conc 33.6 % (30-36); Mean Corpuscular Hemoglobin 31.6 PG (26-34); Mean Corpuscular Volume 94.1 fL (80-100); Platelet Count 254 X10^3/uL (150-400); Red Blood Cell Count 4.03 X10^6/uL (4.0-5.2); Red Cell Distribution Width 13.1 % (11.6-14.8); White Blood Cell Count 6.3 X10^3/uL (4.5-11.0)
[2022-12-22 08:38] LABS: Aspartate Aminotransferase 31 IU/L (14-36); BUN Creatinine Ratio 19.1 (6-22); Bilirubin Total 0.4 mg/dL (0.2-1.3); Blood Urea Nitrogen 13 mg/dL (7-17); Carbon Dioxide 30 mmol/L (22-32); Chloride 100 mmol/L (98-107); Estimated Glomerular Filt Rate > 60 mL/min (>60); Glucose 97 mg/dL (80-110); HEMOLYSIS < 15 (0-50); Potassium 4.2 mmol/L (3.4-5.1); Sodium 135 mmol/L (137-145)
[2022-12-22 08:39] LABS: Alanine Aminotransferase 27 IU/L (<35); Albumin 4.1 g/dL (3.5-5.0); Albumin Globulin Ratio 1.6 (1.0-2.8); Alkaline Phosphatase 72 U/L (38-126); Cholesterol 164 mg/dL (140-199); Globulin 2.5 g/dL (1.7-4.1); HDL Cholesterol 83 mg/dL (40-60); LDL Cholesterol Calculated 72 mg/dL (<100); Total Protein 6.6 g/dL (6.3-8.2); Triglycerides 46 mg/dL (35-150)
[2022-12-22 08:48] LABS: Vitamin D 25 Hydroxy (D3) 38.1 ng/mL (30.0-100.0)
[2022-12-22 08:49] LABS: Free T3, Triiodothyronine Free 3.69 pg/mL (2.77-5.27); Free T4, Direct Thyroxine 1.16 ng/dL (0.78-2.19)
[2022-12-22 09:02] LABS: Thyroid Stimulating Hormone 2.28 uIU/mL (0.47-4.68)
[2022-12-22 09:43] LABS: Creatinine Urine Random 28.1 mg/dL
[2022-12-22 09:50] LABS: Microalbumin Urine Random < 0.6 mg/dL (0-1.6)
[2022-12-22 16:29] LABS: Hep C Virus Ab w/Reflex Quant NEGATIVE s/c (NEGATIVE)
== END ==
PROVIDERS: Family Provider Nurse Practitioner; PCP Nurse Practitioner; Referring Provider Nurse Practitioner; Visit Provider Nurse Practitioner
DX: E61.1 Iron deficiency (principal); E78.5 Hyperlipidemia, unspecified; E55.9 Vitamin D deficiency, unspecified; F41.9 Anxiety disorder, unspecified; F51.01 Primary insomnia; Z11.59 Encounter for screening for other viral diseases
CPT/HCPCS: 36415; 80053; 80061; 82043; 82306; 82570; 84439; 84443; 84481; 85027; 86803

== ENCOUNTER → 2023-01-07 15:22 | Outpatient (CLI) | payer MEDICARE, OTHER, SELFPAY ==
--- NOTE | 2023-01-07 15:24 | DI.US.S_ITS ---
PROCEDURE: US PELVIC COMPLETE INDICATIONS: cervical abnormality TECHNIQUE: Real-time scanning was performed of the pelvic organs, with image documentation. Additional endovaginal scanning was necessary due to incomplete visualization of the adnexal and endometrial structures by transabdominal scanning. COMPARISON: [facility], US, PELVIC COMPLETE, 02/03/2014, 13:47. FINDINGS: Uterus: Uterus is anteverted and unremarkable in size for age measuring 6.1 x 2.3 x 3.8 cm. Scattered uterine calcifications present, likely senescent change and/or calcified uterine vessels. Endometrium measures 1 mm in thickness. Ovaries: The right ovary measures 1.9 x 1.1 x 1.1 cm, with a calculated ovarian volume of 1 cc. Prior left oophorectomy. No adnexal mass visualized. Other: No pathologic free abdominal or pelvic fluid. IMPRESSION: 1. No definite cervical abnormality identified sonographically. Correlation with direct visualization may be helpful. Gynecology consultation may be helpful to direct further management. 2. Unremarkable sonographic appearance of the right ovary for age. Prior left oophorectomy. No adnexal mass visualized. We strive to produce accurate, complete, and clear reports of imaging services. To assist us in improving patient care, this report was composed using standard report templates and voice recognition software. Therefore, it may contain abnormal punctuation, insertions and/or omissions. Occasional wrong-word or sound-alike substitutions may occur. Though we review the report and make efforts to correct it, we do recommend that the report be read carefully in proper context to recognize any text inaccuracies. Dictated by: Jason Niño M.D. on 01/07/2023 at 17:00 Approved by: Jason Niño M.D. on 01/07/2023 at 17:04
== END ==
PROVIDERS: Family Provider Nurse Practitioner; PCP Nurse Practitioner; Referring Provider Nurse Practitioner; Visit Provider Nurse Practitioner
DX: N88.9 Noninflammatory disorder of cervix uteri, unspecified (principal); Z90.721 Acquired absence of ovaries, unilateral
CPT/HCPCS: 76830; 76856

== ENCOUNTER → 2023-09-05 12:44 | Outpatient (CLI) | payer MEDICARE, OTHER, SELFPAY ==
--- NOTE | 2023-09-05 12:45 | DI.MG.S_ITS ---
BILATERAL DIGITAL SCREENING MAMMOGRAM 3D/2D WITH CAD: 09/05/2023 CLINICAL: Routine screening. Family history of breast cancer. Comparison is made to exams dated: 09/04/2022 mammogram, 08/27/2021 mammogram, and 06/23/2020 mammogram - [facility]. Both breasts are heterogeneously dense, which may obscure small masses (category c / 51-75% glandular tissue). Current study was also evaluated with a Computer Aided Detection (CAD) system. No significant masses, calcifications, or other findings are seen in either breast. IMPRESSION: NEGATIVE There is no mammographic evidence of malignancy. A 1 year screening mammogram is recommended. Based on the Tyrer Cuzick model (a risk assessment model) the patient's lifetime risk is 13.9% and her 10 year risk is 10.5%. According to the ACR, ACS, and NCCN guidelines, an annual breast MRI exam along with mammogram is recommended if the patient's lifetime risk is 20% or greater. This exam was interpreted at Station ID: [id number]. NOTE: For mammograms, a report in lay terms will be sent to the patient. Approximately 15% of breast malignancies will not be visualized mammographically. In the management of a palpable breast mass, a negative mammogram must not discourage biopsy of a clinically suspicious lesion. Electronically Signed By: Liya Baptiste M.D., PH.D po/carmita:09/07/2023 22:55:02 letter sent: Normal Exam ACR BI-RADS Category 1: Negative [id number]
== END ==
PROVIDERS: Family Provider Nurse Practitioner; PCP Nurse Practitioner; Referring Provider Nurse Practitioner; Visit Provider Nurse Practitioner
DX: Z12.31 Encounter for screening mammogram for malignant neoplasm of breast (principal); Z80.3 Family history of malignant neoplasm of breast
CPT/HCPCS: 77063; 77067

== ENCOUNTER → 2024-01-29 14:18 | Outpatient (CLI) | payer MEDICARE, OTHER, SELFPAY ==
--- NOTE | 2024-01-29 14:19 | DI.US.S_ITS ---
PROCEDURE: US PERIPH VENOUS LOW EXTREM BI INDICATIONS: calf pain rule out DVT TECHNIQUE: Real-time imaging, as well as color and pulse Doppler interrogation, were performed of the deep veins of both legs from the inguinal ligament to the popliteal fossa, with documentation of the visualized calf veins. COMPARISON: None. FINDINGS: Right: The common femoral, femoral, popliteal, and the visualized calf veins are normally compressible, and free of intraluminal thrombus. Color and pulse Doppler demonstrate normal phasic intravascular flow. There is normal augmentation response to distal compression maneuver. Left: The common femoral, femoral, popliteal, and the visualized calf veins are normally compressible, and free of intraluminal thrombus. Color and pulse Doppler demonstrate normal phasic intravascular flow. There is normal augmentation response to distal compression maneuver. IMPRESSION: No findings of deep venous thrombosis in either lower extremity. Dictated by: Christopher Ho M.D. on 01/29/2024 at 15:28 Approved by: Christopher Ho M.D. on 01/29/2024 at 15:28
== END ==
LOC: US 14:19
PROVIDERS: Family Provider Nurse Practitioner; PCP Nurse Practitioner; Referring Provider Nurse Practitioner; Visit Provider Nurse Practitioner
DX: M79.669 Pain in unspecified lower leg (principal)
CPT/HCPCS: 93970

== ENCOUNTER → 2024-03-23 11:37 | Outpatient (CLI) | payer MEDICARE, OTHER, SELFPAY ==
--- NOTE | 2024-03-23 11:38 | DI.RAD.S_ITS ---
PROCEDURE: XR SHOULDER RT MIN 2V INDICATIONS: right shoulder pain - AC joint suspect tendinitis TECHNIQUE: 3 views of the shoulder were acquired. COMPARISON: None. FINDINGS: Bones: No fractures or dislocations. Mild degenerative changes at the right AC joint. No suspicious bony lesions. Visualized ribs appear intact. Soft tissues: No suspicious soft tissue calcifications. IMPRESSION: Mild degenerative changes at the right AC joint. Consider MRI for further evaluation. Dictated by: Lonny Morgan M.D. on 03/23/2024 at 16:27 Approved by: Lonny Morgan M.D. on 03/23/2024 at 16:29
== END ==
PROVIDERS: Family Provider Nurse Practitioner; PCP Nurse Practitioner; Referring Provider Physician Assistant; Visit Provider Physician Assistant
DX: M25.511 Pain in right shoulder (principal)
CPT/HCPCS: 73030

== ENCOUNTER → 2024-09-08 08:43 | Outpatient (CLI) | payer MEDICARE, OTHER, SELFPAY ==
--- NOTE | 2024-09-08 08:45 | DI.MRI.S_ITS ---
PROCEDURE: MR SHOULDER RT WO CON INDICATIONS: RT SHOULDER PAIN/IMPINGEMENT SYNDROME TECHNIQUE: Noncontrast oblique coronal T2 fast spin echo with fat saturation, oblique sagittal T1 spin echo and T2 fast spin echo with fat saturation, axial T1 spin echo and T2 fast spin echo with fat saturation through the shoulder. COMPARISON: None. FINDINGS: Image quality: Excellent. Rotator cuff: There is full-thickness rupture involving anterior fibers of distal supraspinatus at its insertion on humeral head with up to 1.3 cm medial retraction of torn tendon fibers and a fluid-filled gap measures 1 cm in AP dimension. Low to moderate grade articular surface partial-thickness tear involving mid to posterior fibers of distal supraspinatus and distal infraspinatus at their insertions on humeral head is seen extending to musculotendinous junction. Low-grade intrasubstance partial-thickness tear involving distal subscapularis is also seen. Sagittal images demonstrate no significant rotator cuff muscle atrophy. Bones and bursae: Mild superior migration of humeral head in relation to glenoid is noted. Moderate acromioclavicular joint osteoarthritic changes are seen with joint space narrowing, subchondral sclerosis and downward osteophyte formation depressing the musculotendinous junction of supraspinatus. Moderate joint effusion and subacromial subdeltoid bursal fluid is seen, no gross loose bodies. Capsule and soft tissues: Labrum is grossly intact. The long head of the biceps tendon appears thickened with intrasubstance T2 hyperintense signal along anterior aspect of proximal humeral shaft within the bicipital groove. The rotator interval appears normal, without fibrosis. IMPRESSION: 1. Full-thickness rupture involving anterior fibers of distal supraspinatus at its insertion on the humeral head with up to 1.3 cm medial retraction of torn tendon fibers and fluid-filled gap measures 1 cm in AP dimension. 2. Low to moderate grade articular surface partial-thickness tear involving mid to posterior fibers of distal supraspinatus and distal infraspinatus extending to musculotendinous junction. Low-grade intrasubstance partial-thickness tear involving distal subscapularis. No significant rotator cuff muscle atrophy. 3. Mild superior migration of humeral head in relation to glenoid. Moderate acromioclavicular joint osteoarthritis. No acute fracture or dislocation. Moderate joint effusion and subacromial subdeltoid bursal fluid. 4. No definite focal labral tear. 5. Low to moderate grade intrasubstance partial-thickness tear involving proximal long head of biceps tendon along proximal humeral shaft and humeral head. Dictated by: Byron Louie M.D. on 09/08/2024 at 12:25 Approved by: Byron Louie M.D. on 09/08/2024 at 12:29
== END ==
PROVIDERS: Family Provider Nurse Practitioner; PCP Student in an Organized Health Care Education/Training Program; Referring Provider Orthopaedic Surgery; Visit Provider Orthopaedic Surgery
DX: M75.111 Incomplete rotator cuff tear or rupture of right shoulder, not specified as traumatic (principal); M19.011 Primary osteoarthritis, right shoulder; S46.111A Strain of muscle, fascia and tendon of long head of biceps, right arm, initial encounter; M25.411 Effusion, right shoulder; M25.511 Pain in right shoulder; M75.40 Impingement syndrome of unspecified shoulder; R39.9 Unspecified symptoms and signs involving the genitourinary system
CPT/HCPCS: 73221; 87086

== ENCOUNTER → 2024-09-08 16:22 | Outpatient (CLI) | payer MEDICARE, OTHER, SELFPAY | PROVIDERS: Family Provider Nurse Practitioner; PCP Student in an Organized Health Care Education/Training Program; Visit Provider Student in an Organized Health Care Education/Training Program | DX: R39.9 Unspecified symptoms and signs involving the genitourinary system (principal) | CPT/HCPCS: 87086 ==

== ENCOUNTER → 2024-09-12 15:54 | Outpatient (CLI) | payer MEDICARE, OTHER, SELFPAY ==
--- NOTE | 2024-09-12 15:54 | DI.MG.S_ITS ---
BILATERAL DIGITAL SCREENING MAMMOGRAM 3D/2D WITH CAD: 09/12/2024 CLINICAL: Routine screening. Family history of breast cancer. Comparison is made to exams dated: 09/05/2023 mammogram, 09/04/2022 mammogram, and 08/27/2021 mammogram - [facility]. The breasts are heterogeneously dense, which may obscure small masses (category c / 51-75% glandular tissue). Current study was also evaluated with a Computer Aided Detection (CAD) system. No significant masses, calcifications, or other findings are seen in either breast. There has been no significant interval change. IMPRESSION: NEGATIVE There is no mammographic evidence of malignancy. A 1 year screening mammogram is recommended. Based on the Tyrer Cuzick model (a risk assessment model) the patient's lifetime risk is 13.1% and her 10 year risk is 10.8%. According to the ACR, ACS, and NCCN guidelines, an annual breast MRI exam along with mammogram is recommended if the patient's lifetime risk is 20% or greater. This exam was interpreted at Station ID: [id number]. NOTE: For mammograms, a report in lay terms will be sent to the patient. Approximately 15% of breast malignancies will not be visualized mammographically. In the management of a palpable breast mass, a negative mammogram must not discourage biopsy of a clinically suspicious lesion. Electronically Signed By: Norman herrera/carmita:09/13/2024 08:33:23 letter sent: Normal Exam ACR BI-RADS Category 1: Negative
== END ==
PROVIDERS: Family Provider Nurse Practitioner; PCP Student in an Organized Health Care Education/Training Program; Referring Provider Student in an Organized Health Care Education/Training Program; Visit Provider Student in an Organized Health Care Education/Training Program
DX: Z12.31 Encounter for screening mammogram for malignant neoplasm of breast (principal); Z80.3 Family history of malignant neoplasm of breast; R92.333 Mammographic heterogeneous density, bilateral breasts
CPT/HCPCS: 77063; 77067

== ENCOUNTER → 2024-09-19 08:13 | Outpatient (CLI) | payer MEDICARE, OTHER, SELFPAY ==
--- NOTE | 2024-09-19 08:14 | DI.US.S_ITS ---
PROCEDURE: US ABDOMEN LIMITED INDICATIONS: Groin Mass TECHNIQUE: Real-time focused scanning was performed of the inguinal region, with image documentation. COMPARISON: None. FINDINGS: At the area of concern at the right groin, there is a 1.5 x 1.3 x 1.9 cm ovoid anechoic structure with posterior acoustic enhancement and without any internal vascularity. IMPRESSION: Right groin 1.9 cm structure, possibly representing a simple cyst. Percutaneous aspiration would be recommended for confirmation. Dictated by: Joel Recinos M.D. on 09/19/2024 at 12:52 Approved by: Joel Recinos M.D. on 09/19/2024 at 12:55
== END ==
PROVIDERS: Family Provider Nurse Practitioner; PCP Student in an Organized Health Care Education/Training Program; Referring Provider Student in an Organized Health Care Education/Training Program; Visit Provider Student in an Organized Health Care Education/Training Program
DX: R19.09 Other intra-abdominal and pelvic swelling, mass and lump (principal)
CPT/HCPCS: 76705

== ENCOUNTER → 2024-10-21 13:39 | Outpatient (CLI) | payer MEDICARE, OTHER, SELFPAY ==
--- NOTE | 2024-10-21 13:44 | DI.US.S_ITS ---
PROCEDURE: US ASPIRATION CYST COMPARISON: None. INDICATIONS: Percutaneous aspiration recommended for confirmation FINDINGS: The right inguinal region was prepped and draped in standard sterile fashion. Right groin skin was and mass discitis with 1 percent lidocaine. 20 gauge needle was inserted into right inguinal cystic structure with immediate collapse of the cyst. Only approximately 0.5 cc of blood-tinged clear fluid was aspirated. Needle was subsequently removed and hemostasis was achieved. No immediate complications. IMPRESSION: Technically successful or aspiration of right inguinal cyst. Dictated by: Byron Louie M.D. on 10/21/2024 at 17:14 Approved by: Byron Louie M.D. on 10/21/2024 at 17:16
--- NOTE | 2024-10-21 14:48 | PATH_ITS ---
Note [facility] Accession Number: [id number] TESTS RESULT FLAG UNITS REF RANGE LAB Clinician Provided Cytology Information No. of containers..01 Other (Miscellaneous) Source: RIGHT GROIN CYST DIAGNOSIS: RIGHT GROIN CYST, ASPIRATION. NEGATIVE FOR MALIGNANT CELLS. MACROPHAGES AND FEW INFLAMMATORY CELLS PRESENT, CONSISTENT WITH CYST FLUID CONTENTS. Pathologist ICD10: R19.09 Signed out by: Sherlyn Kaplan MD, Pathologist NPI- [id number] Performed by: Agapito Galindo, [employer] ([facility]) Gross description: 01 0.1 CC, COLORLESS, CLEAR RECEIVED: FRESH IN 10 ML SYRINGE.VO /VDU 10/24/2024 0714 Local FLAG LEGEND: L-Low Normal,H-High Normal,LL-Alert Low,HH-Alert High <-Panic Low,>-Panic High,A-Abnormal,AA-Critical Abnormal Performed at: 01 =[facility] [address] [facility], [place] [address] Bharat Montanez MD, Performed at: [address] [facility] [place] [address], [place], [place] [id number] MD Bharat Montanez MD Phone: [phone]
== END ==
PROVIDERS: Family Provider Nurse Practitioner; PCP Student in an Organized Health Care Education/Training Program; Referring Provider Student in an Organized Health Care Education/Training Program; Visit Provider Student in an Organized Health Care Education/Training Program
DX: R19.09 Other intra-abdominal and pelvic swelling, mass and lump (principal)
CPT/HCPCS: 10005

== ENCOUNTER → 2025-05-04 07:04 | Outpatient (CLI) | payer MEDICARE, OTHER, SELFPAY ==
[2025-05-04 07:46] LABS: Add Manual Diff / Slide Review NO; Hematocrit 39.8 % (36-46); Hemoglobin 13.5 g/dL (12.0-16.0); Lymphocytes Absolute Auto 2000 /uL (1100-4500); Mean Corpuscular HGB Conc 33.8 % (30-36); Mean Corpuscular Hemoglobin 32.0 PG (26-34); Mean Corpuscular Volume 94.7 fL (80-100); Platelet Count 246 X10^3/uL (150-400)
[2025-05-04 08:02] LABS: Alanine Aminotransferase 23 IU/L (<35); Albumin 4.5 g/dL (3.5-5.0); Albumin Globulin Ratio 1.8 (1.0-2.8); Alkaline Phosphatase 72 U/L (38-126); Blood Urea Nitrogen 10 mg/dL (7-17); Calcium 9.5 mg/dL (8.4-10.2); Carbon Dioxide 29 mmol/L (22-32); Chloride 101 mmol/L (98-107); Cholesterol 190 mg/dL (140-199); Estimated Glomerular Filt Rate > 60 mL/min (>60); Globulin 2.5 g/dL (1.7-4.1); Glucose 90 mg/dL (70-99); HDL Cholesterol 100 mg/dL (40-60); HEMOLYSIS < 15 (0-50); Potassium 4.4 mmol/L (3.4-5.1); Sodium 135 mmol/L (137-145); Total Protein 7.0 g/dL (6.3-8.2); Triglycerides 55 mg/dL (35-150)
[2025-05-04 08:14] LABS: Vitamin D 25 Hydroxy (D3) 40.3 ng/mL (30.0-100.0)
== END ==
PROVIDERS: Family Provider Nurse Practitioner; PCP Student in an Organized Health Care Education/Training Program; Referring Provider Student in an Organized Health Care Education/Training Program; Visit Provider Student in an Organized Health Care Education/Training Program
DX: E61.1 Iron deficiency (principal); E78.5 Hyperlipidemia, unspecified; E55.9 Vitamin D deficiency, unspecified
CPT/HCPCS: 36415; 80053; 80061; 82306; 85025

== ENCOUNTER → 2025-08-25 14:55 | Outpatient (CLI) | payer MEDICARE, OTHER, SELFPAY ==
--- NOTE | 2025-08-25 14:57 | DI.RAD.S_ITS ---
PROCEDURE: XR SHOULDER LT MIN 2V
== END ==
LOC: RAD 14:57
PROVIDERS: PCP Student in an Organized Health Care Education/Training Program; Referring Provider Chiropractor; Visit Provider Chiropractor
DX: M19.012 Primary osteoarthritis, left shoulder (principal); S43.402A Unspecified sprain of left shoulder joint, initial encounter; M25.512 Pain in left shoulder
CPT/HCPCS: 73030

== ENCOUNTER → 2025-10-18 18:42 | Outpatient (CLI) | payer MEDICARE, OTHER, SELFPAY ==
--- NOTE | 2025-10-18 18:45 | DI.MRI.S_ITS ---
PROCEDURE: MR SHOULDER LT WO CON INDICATIONS: Unspecified fracture of upper end of left humerus TECHNIQUE: Noncontrast oblique coronal T2 fast spin echo with fat saturation, oblique sagittal T1 spin echo and T2 fast spin echo with fat saturation, axial T1 spin echo and T2 fast spin echo with fat saturation through the shoulder. COMPARISON: [facility], CR, XR SHOULDER 2+ VIEWS LEFT, 10/06/2025, 9:12. [facility], MR, MR SHOULDER RT WO CON, 09/08/2024, 8:50. FINDINGS: Quality: Adequate. Tendons: Rotator cuff tendons: Greater than 50% thickness articular sided non insertional tear with possible small full-thickness component posteriorly. Infraspinatus and teres minor tendons are intact. Greater than 50% thickness articular insertional tear of the superior 3rd of the subscapularis tendon. Long head of biceps tendon: Tendinopathy within the rotator interval. No dislocation. Muscles: No disproportionate fatty degeneration of the rotator cuff musculature. Acromioclavicular joint: Moderate degenerative arthritis.. Glenohumeral joint: Labrum: Diffuse labral tearing and degeneration.. Cartilage: Greater than 50% thickness cartilage thinning along the posterior glenoid and medial humeral head. Fluid: Small effusion. Capsule: No pericapsular inflammation or scarring. Alignment: No dislocation. Bursa: Subacromial/subdeltoid bursa: Distended. Subcoracoid bursa: Nondistended. Bones: Incompletely healed avulsion fracture of the anterior greater tuberosity with extensive marrow edema. Additional nondisplaced fracture at the surgical neck of the humerus. IMPRESSION: Incompletely healed proximal humerus fractures. High-grade partial-thickness supraspinatus tendon tear with small full-thickness component suspected. High-grade partial-thickness subscapularis tendon tear. Long head of biceps tendinopathy. Moderate acromioclavicular and glenohumeral osteoarthritis. Dictated by: Raoul Shafer M.D. on 10/20/2025 at 12:13 Approved by: Raoul Shafer M.D. on 10/20/2025 at 13:09
== END ==
LOC: MRI 18:44
PROVIDERS: Family Provider Student in an Organized Health Care Education/Training Program; PCP Student in an Organized Health Care Education/Training Program
DX: S42.252G Displaced fracture of greater tuberosity of left humerus, subsequent encounter for fracture with delayed healing (principal); S42.215 Unspecified nondisplaced fracture of surgical neck of left humerus; M19.012 Primary osteoarthritis, left shoulder; S46.012A Strain of muscle(s) and tendon(s) of the rotator cuff of left shoulder, initial encounter; S43.492A Other sprain of left shoulder joint, initial encounter; X58.XXXD Exposure to other specified factors, subsequent encounter; X58.XXXA Exposure to other specified factors, initial encounter
CPT/HCPCS: 73221